=== PATIENT | female | born 1940 | race Two or more races ===

== ENCOUNTER 2017-08-31 08:11 | Outpatient (CLI) | payer OTHER | END 2017-08-31 08:19 | disposition home or self-care (01) | LOC: SONOGRAMA 08:11 | DX: E04.2 Nontoxic multinodular goiter (principal) ==

== ENCOUNTER 2018-06-17 10:29 | Emergency (ER) | payer OTHER ==
[~2018-06-17] VITALS: Ht 157.5 cm; Wt 59.0 kg
[2018-06-17] MEDS ORDERED: METFORMIN HCL500 MG (10:40)
[2018-06-17] MEDS ORDERED: DILTIAZEM 24HR240 MG (10:41)
== END 2018-06-17 16:24 | disposition home or self-care (01) ==
LOC: ER 10:29 → CPU-OBS 11:38 → ER 16:24
DX: R07.89 Other chest pain (principal)

== ENCOUNTER 2019-07-19 06:46 | Emergency (ER) | payer OTHER ==
[~2019-07-19] VITALS: Ht 157.5 cm; Wt 56.7 kg
[~2019-07-19 06:46] MED LIST: DILTIAZEM 24HR240 MG; METFORMIN HCL500 MG
== END 2019-07-19 10:23 | disposition home or self-care (01) ==
LOC: ER 06:46
DX: B34.9 Viral infection, unspecified (principal); R06.02 Shortness of breath; F41.8 Other specified anxiety disorders

== ENCOUNTER 2019-08-21 17:29 | Emergency (ER) | payer OTHER ==
[~2019-08-21] VITALS: Ht 167.6 cm; Wt 54.4 kg
[2019-08-21] MEDS ORDERED: CRESTOR10 MG (17:48)
[2019-08-21] MEDS ORDERED: LOSARTAN POTASS50 MG (17:48)
== END 2019-08-21 18:34 | disposition home or self-care (01) ==
LOC: ER 17:29
DX: F41.8 Other specified anxiety disorders (principal); R63.0 Anorexia; G47.09 Other insomnia; R06.02 Shortness of breath; R07.89 Other chest pain